=== PATIENT | female | born 1965 | race Two or more races ===

== ENCOUNTER 2018-11-13 18:35 | Emergency (ER) | payer OTHER ==
[~2018-11-13] VITALS: Ht 154.9 cm; Wt 59.1 kg
[2018-11-13] MEDS ORDERED: ATOR10TA84 PO (18:41)
[2018-11-13] MEDS ORDERED: OMEP20 PO (18:41)
[2018-11-13] MEDS ORDERED: ADV100 IH (18:41)
[2018-11-13 21:31] VITALS: BP 105/61
== END 2018-11-13 21:32 | disposition home or self-care (01) ==
LOC: EMS 18:37
DX: S30.0XXA Contusion of lower back and pelvis, initial encounter (principal); M53.3 Sacrococcygeal disorders, not elsewhere classified; K21.9 Gastro-esophageal reflux disease without esophagitis; E78.00 Pure hypercholesterolemia, unspecified; W18.2XXA Fall in (into) shower or empty bathtub, initial encounter; Y93.89 Activity, other specified; Y92.89 Other specified places as the place of occurrence of the external cause; Y99.8 Other external cause status
CPT/HCPCS: 72100; 72202